=== PATIENT | female | born 1995 | race African-American/Black ===

== ENCOUNTER 2017-11-11 10:21 | Emergency (ER) | payer MEDICAID ==
[~2017-11-11] VITALS: Ht 165.1 cm; Wt 79.0 kg
[2017-11-11 10:30] VITALS: BP 110/61
== END 2017-11-11 11:10 | disposition home or self-care (01) ==
LOC: ER 10:21
DX: J30.9 Allergic rhinitis, unspecified (principal); Z98.890 Other specified postprocedural states; Z91.018 Allergy to other foods
CPT/HCPCS: 81025; 99283